=== PATIENT | male | born 1960 | race Caucasian/White ===

== ENCOUNTER 2020-03-12 11:09 | Outpatient (CLI) | payer OTHER, SELFPAY ==
[2020-03-12 11:50] LABS: Basophils Absolute Auto 0.1 K/mm3 (0.0-0.1); Basophils Percent Auto 1.1 % (0.2-1.2); Eosinophils Percent Auto 0.8 % (0-4.4); Hematocrit 46.2 % (42.0-52.0); Hemoglobin 15.8 g/dL (14.0-18.0); Immature Granulocyte Absolute 0.01 K/mm3 (0.00-0.031); Immature Granulocyte Percent A 0.2 % (0-0.5); Lymphocytes Percent Auto 34.5 % (18.3-44.2); Mean Corpuscular HGB Conc 34.2 g/dl (32-36); Mean Corpuscular Hemoglobin 31.8 pg (26-34); Monocytes Absolute Auto 0.5 K/mm3 (0.1-0.6); Monocytes Percent Auto 8.8 % (2.6-8.5); Neutrophils Absolute Auto 2.9 K/mm3 (1.3-6.7); Neutrophils Percent Auto 54.6 % (45.5-73.1); Platelet Count Result 213 k/mm3 (150-375); Prothrombin Time 12.6 Seconds (11.1-14.7); Red Blood Count 4.97 M/mm3 (4.6-6.20); Red Cell Distribution Width 12.3 % (11.5-14.5); White Blood Count 5.2 K/mm3 (4.5-10.0)
[2020-03-12 11:57] LABS: Alanine Aminotransferase 23 U/L (4-50); Albumin Level 4.4 g/dL (3.5-5.1); Alkaline Phosphatase 63 U/L (38-126); Aspartate Amino Transferase 27 U/L (17-59); Blood Urea Nitrogen 11 mg/dL (9-20); Carbon Dioxide 25 mmol/L (22-30); Chloride 106 mmol/L (98-107); Estimated Glomerular Filt Rate > 60; Glucose 96 mg/dL (75-110); Potassium 4.3 mmol/L (3.4-5.0); Sodium 139 mmol/L (137-145)
== END 2020-03-12 11:10 | disposition home or self-care (01) ==
PROVIDERS: PCP Family Medicine; Visit Provider Internal Medicine Cardiovascular Disease
DX: Z01.818 Encounter for other preprocedural examination (principal)
CPT/HCPCS: 36415; 80053; 85025; 85610

== ENCOUNTER 2021-01-22 15:46 | Outpatient (CLI) | payer OTHER, SELFPAY ==
[2021-01-22 17:01] LABS: Alanine Aminotransferase 39 U/L (4-50); Albumin Level 4.6 g/dL (3.5-5.1); Alkaline Phosphatase 73 U/L (38-126); Anion Gap 5 mmol/L (8-16); Aspartate Amino Transferase 37 U/L (17-59); Bilirubin,Total 1.7 mg/dL (0.2-1.3); Blood Urea Nitrogen 17 mg/dL (9-20); Calcium 9.8 mg/dL (8.4-10.2); Carbon Dioxide 30 mmol/L (22-30); Chloride 102 mmol/L (98-107); Estimated Glomerular Filt Rate 51; Glucose 92 mg/dL (75-110); Potassium 4.8 mmol/L (3.4-5.0); Sodium 137 mmol/L (137-145)
== END 2021-01-22 15:47 | disposition home or self-care (01) ==
LOC: ANHLAB 15:50
PROVIDERS: PCP Family Medicine; Visit Provider Internal Medicine Cardiovascular Disease
DX: I25.118 Atherosclerotic heart disease of native coronary artery with other forms of angina pectoris (principal)
CPT/HCPCS: 36415; 80053

== ENCOUNTER 2021-05-23 14:03 | Outpatient (CLI) | payer OTHER, SELFPAY ==
[2021-05-23 14:37] LABS: Alanine Aminotransferase 44 U/L (4-50); Albumin Level 4.3 g/dL (3.5-5.1); Alkaline Phosphatase 72 U/L (38-126); Anion Gap 5 mmol/L (8-16); Aspartate Amino Transferase 38 U/L (17-59); Blood Urea Nitrogen 18 mg/dL (9-20); Calcium 9.3 mg/dL (8.4-10.2); Carbon Dioxide 27 mmol/L (22-30); Chloride 108 mmol/L (98-107); Estimated Glomerular Filt Rate 56; Glucose 99 mg/dL (65-110); Potassium 5.1 mmol/L (3.4-5.0); Sodium 140 mmol/L (137-145)
== END 2021-05-23 14:04 | disposition home or self-care (01) ==
PROVIDERS: PCP Family Medicine; Visit Provider Internal Medicine Cardiovascular Disease
DX: I25.118 Atherosclerotic heart disease of native coronary artery with other forms of angina pectoris (principal)
CPT/HCPCS: 36415; 80053; 84443

== ENCOUNTER 2021-10-31 00:25 | Day surgery (SDC) | payer OTHER, SELFPAY ==
[2021-10-16 13:53] VITALS: BMI 28.4
--- NOTE | 2021-10-30 11:39 | PM.HPGS ---
History of Present Illness History of Present Illness Consent: Risks, benefits, and alternatives have been discussed and questions answered. Patient agrees to proceed with procedure. Chief complaint: hx of colon polyps Narrative: Erick Jaquez is a 61 year old male Referred for colon cancer screening. He had a polyp removed about 6 years ago Review of Systems Review of Systems: All systems reviewed & are unremarkable except as noted in HPI and below PMFSH Past Medical History Medical History Arthritis CAD (coronary artery disease) Hyperlipidemia Family History Family History Other Diabetes mellitus Family history of cardiovascular disease Social History Social History Years smoked: 10 Smoking status: Former smoker Tobacco type: cigarettes Smoking end date: 09/13/84 Alcohol intake: never Substance use: never Substance use type: does not use Living arrangements: with family Spiritual care concerns: No Meds Home Medications and Allergies Home Medications Medication Instructions Recorded Confirmed Type aspirin 81 mg PO DAILY 10/16/21 10/16/21 History atorvastatin 80 mg PO DAILY 10/16/21 10/16/21 History ranolazine 500 mg PO DAILY 10/16/21 10/16/21 History spironolactone 25 mg PO DAILY 10/16/21 10/16/21 History Allergies Allergy/AdvReac Type Severity Reaction Status Date / Time No Known Allergies Allergy Verified 10/31/21 07:19 Exam Const: General: alert Orientation/consciousness: patient oriented x3 Resp: Auscultation: clear to auscultation bilaterally Cardio: Rhythm: regular rhythm GI: GI Palp: Yes Soft to palpation and No Tenderness to palpation present (GI) Neuro: General: patient oriented x3 Assessment and Plan Assessment and plan (1) Colon cancer screening: Code(s): Z12.11 - Encounter for screening for malignant neoplasm of colon Status: Acute Assessment and Plan: Colonoscopy with possible biopsy or polypectomy or cautery or injection of substances.
[2021-10-31 07:10] VITALS: BP 108/62; PULSE 86; RESP 18; TEMP 36.1; O2SAT 96; BMI 28.2
[2021-10-31] MEDS: LACTATED RINGERS 1,000 ML 150 ML IV CONT (07:32)
--- NOTE | 2021-10-31 07:35 | WPDANESEPPF ---
Anes - Initial Pre Proc Eval Procedure: Operation Date: 10/31/21 08:30 Proposed Procedures p Screening Colonoscopy - Leonardo Barry MD Date/Time: 10/31/21 07:35 Surgeon: Leonardo Barry MD Pre Op Diagnosis: hx of colon polyps Patient Data Age: 61 Gender: M Height: 1.78 m Weight: 89.3 kg Last Vital Signs Temp 36.1 C L 10/31/21 07:10 Pulse 86 10/31/21 07:10 Resp 18 10/31/21 07:10 BP 108/62 10/31/21 07:10 Pulse Ox 96 10/31/21 07:10 Allergies Allergy/AdvReac Type Severity Reaction Status Date / Time No Known Allergies Allergy Verified 10/31/21 07:19 Home Medications Medication Instructions Recorded Confirmed Type aspirin 81 mg PO DAILY 10/16/21 10/16/21 History atorvastatin 80 mg PO DAILY 10/16/21 10/16/21 History ranolazine 500 mg PO DAILY 10/16/21 10/16/21 History spironolactone 25 mg PO DAILY 10/16/21 10/16/21 History Patient hx anesthesia problems: none Family hx anesthesia problems: none Results Review: All pre-operative results and documents have been reviewed as part of the pre-operative evaluation. [facility] Past Medical History Medical History Arthritis CAD (coronary artery disease) Hyperlipidemia Family History Family History Other Diabetes mellitus Family history of cardiovascular disease Social History Social History Years smoked: 10 Smoking status: Former smoker Tobacco type: cigarettes Smoking end date: 09/13/84 Alcohol intake: never Substance use: never Substance use type: does not use Living arrangements: with family Spiritual care concerns: No Anes - Eval Final PreProcedure Day of Procedure 10/31/21 07:35 Patient weight: overweight Heart: regular rate and rhythm Lungs: clear to auscultation Airway: Mallampati scale class II Neurological: alert and oriented Last oral intake: >/= 8 hours ASA classification: III Emergent: no Anesthetic plan: proceed Anesthesia type and monitoring: general GIVS and standard monitoring Results Review: All pre-operative results and documents have been reviewed as part of the pre-operative evaluation. Informed Consent: The patient's anesthetic plan and its attendant risks and benefits were discussed with the patient/family/POA. Questions were solicited and answers provided to the satisfaction of the patient/family/POA.
[2021-10-31 08:29] VITALS: BP 100/59; PULSE 81; RESP 24; O2SAT 92
[2021-10-31 08:39] VITALS: BP 107/72; PULSE 66; RESP 28; O2SAT 100
[2021-10-31 08:49] VITALS: BP 116/77; PULSE 56; RESP 20; O2SAT 99
== END 2021-10-31 08:56 | disposition home or self-care (01) ==
PROVIDERS: PCP Family Medicine; Visit Provider Internal Medicine Gastroenterology
PROC: 0DJD8ZZ Inspection of Lower Intestinal Tract, Via Natural or Artificial Opening Endoscopic (ICD-10-PCS; CPT 45378; principal; 2021-10-31 08:30)
DX: Z12.11 Encounter for screening for malignant neoplasm of colon (principal); K63.5 Polyp of colon; Z79.82 Long term (current) use of aspirin; M19.90 Unspecified osteoarthritis, unspecified site; I25.10 Atherosclerotic heart disease of native coronary artery without angina pectoris; E78.5 Hyperlipidemia, unspecified; Z87.891 Personal history of nicotine dependence
CPT/HCPCS: 45380; 88305; J2704; J7120

== ENCOUNTER 2025-05-09 06:52 | Outpatient (CLI) | payer MEDICARE, OTHER, SELFPAY ==
--- NOTE | ~2025-05-09 | MR_ITS ---
EXAMINATION: MR knee RT wo con DATE: 05/09/2025 07:22 INDICATION: Right knee pain TECHNIQUE: Magnetic resonance imaging (MRI) of the right knee was performed without intravenous contrast. Sequences included coronal PD-weighted FSE, coronal PD-weighted FS FSE, sagittal T2-weighted FSE, sagittal PD-weighted FS FSE and axial PD weighted fat saturated FSE. COMPARISON: None. FINDINGS: Medial compartment: Complex tear of the posterior body and posterior horn of the medial meniscus with a couple longitudinal tear planes extending to both the superior articular surface as well as to the inferior articular surface near the free edge at the posterior horn. There is medial extrusion of the medial meniscal body with suggestion of cephalad subluxation of a small portion of the superior peripheral margin of the meniscus along the medial rim of the weightbearing medial femoral condyle. There is deep chondral ulceration with small central subchondral osteophytes along the anterior to central weightbearing medial femoral condyle. Additional chondral ulceration involving greater than 50% of the cartilage thickness with small focus of subarticular edema-like signal change at the central to medial aspect of the medial tibial plateau. Lateral compartment: Lateral meniscus is normal. Small partial-thickness chondral fissure involving greater than 50% the cartilage thickness but without degenerative subchondral changes along the posterior aspect of the lateral tibial plateau. Remaining articular cartilage is normal. Patellofemoral compartment: Partial-thickness chondral ulceration and deep fissuring at the central aspect of the patellar apical ridge and adjacent aspect of the medial patellar facet. Less severe partial thickness chondral fissuring at the lateral side of the lateral patellar facet. Partial-thickness chondral ulceration with deeper fissuring and underlying central subchondral osteophytes at the trochlear groove and small foci of subarticular edema-like signal change at the medial trochlea. Lateral trochlear cartilage is relatively preserved. Ligaments and tendons: Anterior and posterior cruciate ligaments are normal. The medial collateral ligament and fibular collateral ligament complex are normal. The extensor mechanism is normal. The visualized medial and lateral hamstring tendons as well as the iliotibial band are normal. Fluid: Physiologic amount of fluid in the joint space. No loose osteochondral bodies identified. Osseous/other: 8 x 7 x 7 mm T2 hyperintense lesion with cluster of grape like appearance at the posterior aspect medial tibial plateau which could represent either an enchondroma or more likely a small intraosseous ganglion cyst. No fracture or pathologic marrow replacing process. IMPRESSION: 1. Complex medial meniscal tear with moderate osteoarthritis with high-grade chondral malacia in the medial compartment. 2. Additional mild osteoarthritis with high-grade chondromalacia at the patellofemoral compartment and minimal osteoarthritis with small region of moderate grade chondral malacia the lateral compartment. Reviewed, dictated and finalized at location A. IMPRESSION: 1. Complex medial meniscal tear with moderate osteoarthritis with high-grade ch ondral malacia in the medial compartment. 2. Additional mild osteoarthritis with high-grade chondromalacia at the patello femoral compartment and minimal osteoarthritis with small region of moderate gr mathew chondral malacia the lateral compartment.
== END 2025-05-09 06:53 | disposition home or self-care (01) ==
DX: M25.561 Pain in right knee (principal)
CPT/HCPCS: 73721

== ENCOUNTER 2025-05-22 07:19 | Outpatient (CLI) | payer MEDICARE, OTHER, SELFPAY ==
--- NOTE | ~2025-05-22 | US_ITS ---
EXAMINATION: US aorta [facility] DATE: 05/22/2025 08:23 INDICATION: Abdominal aortic aneurysm screening. TECHNIQUE: Grayscale, color Doppler, and pulsed Doppler images of the aorta and common iliac arteries were obtained. COMPARISON: None. FINDINGS: The aorta is normal in caliber. The right common iliac artery is normal in caliber. The left common iliac artery is normal in caliber. IMPRESSION: 1. No abdominal aortic aneurysm. Reviewed, dictated and finalized at location E.
== END 2025-05-22 07:20 | disposition home or self-care (01) ==
PROVIDERS: PCP Internal Medicine; Visit Provider Internal Medicine
DX: Z13.6 Encounter for screening for cardiovascular disorders (principal)
CPT/HCPCS: 76706

== ENCOUNTER 2025-07-11 14:17 | Outpatient (CLI) | payer MEDICARE, OTHER, SELFPAY ==
--- NOTE | 2025-07-11 | ECG_ITS ---
Test Date: 2025-07-11 14:40:17 Measurements Intervals [place] Rate: 54 P: 30 AK: 134 QRS: 37 QRSD: 102 T: 50 QT: 438 QTc: 417 Interpretive Statements SINUS BRADYCARDIA NONSPECIFIC ST-T WAVE ABNORMALITY- INF/LAT LEADS BORDERLINE ECG No previous ECG available for comparison Electronically Signed On 07-11-2025 14:56:46 CDT by Stas Andrew D.O.
--- OUTSIDE RECORDS SUMMARY | 2025-07-11 16:18 | XMS_ITS | Clinical Summary ---
Author Organization [facility] [place] [address] Address [address] [place] [address] Care Team Providers Care Commissions Analyst Name Role Phone Yunier Michel MD Primary Care Provide r Allergies No known active allergies Medications albuterol HFA (PROVENTIL HFA,VENTOLIN HFA,PROAIR HFA) 90 mcg/actuation inhaler Inhale 2 puffs every 6 (six) hours as needed for wheezing Active fluticasone propionate (FLONASE) 50 mcg/actuation nasal spray Administer 1 spray into each nostril daily Active multivitamin capsule Take 1 capsule by mouth daily Active aspirin 81 mg enteric coated tablet Take 1 tablet (81 mg total) by mouth daily 30 tablet 11 0 Active Jardiance 10 mg tablet TAKE 1 TABLET DAILY 90 tablet 3 5 Active spironolactone (ALDACTONE) 25 mg tablet Take 1 tablet (25 mg total) by mouth daily 90 tablet 1 5 Active ranolazine ER (RANEXA) 500 mg 12 hr tablet Take 1 tablet (500 mg total) by mouth 2 (two) times a day 180 tablet 1 5 Active ezetimibe (ZETIA) 10 mg tablet Take 1 tablet (10 mg total) by mouth daily 90 tablet 1 5 Active atorvastatin (LIPITOR) 80 mg tablet Take 1 tablet (80 mg total) by mouth daily 90 tablet 1 5 Active Active Problems Problem Noted Date Diagnosed Date Chest tightness 03/06/2020 Overview (03/06/2020): Added automatically from request for surgery [id number] Abnormal stress test 03/06/2020 Overview (03/06/2020): Added automatically from request for surgery [id number] Encounters Date Type Department Care Team Description 07/11/2025 Telephone [facility] Card[facility] [address] [place] [address] Venu Diaz MD from Last 3 Months Surgical History Surgery Date Site/Laterality Comments KNEE SURGERY Right WRIST SURGERY Left BACK SURGERY lumbar Medical History Medical History Date Comments Hyperlipidemia Heart murmur Pneumonia Chest tightness Chronic bronchitis (HCC) Asthma GERD (gastroesophageal reflux disease) Migraine Arthritis Brain concussion Apr 1977, , 1981, 1983 Peptic ulceration 1998 Family History Medical History Relation Name Comments Diabetes Brother 1 Anthony Leonid Heart disease Brother 1 Anthony Leonid Hypertension Brother 1 Anthony Leonid Alcohol abuse Brother 2 Anthony Arthritis Brother 2 Anthony COPD Brother 2 Anthony Diabetes Brother 2 Anthony Heart attack Brother 2 Anthony Heart disease Brother 2 Anthony Hypertension Brother 2 Anthony Diabetes Father Hartman Heart attack Father Hartman Heart disease Father Hartman Hyperlipidemia Father Hartman Memory loss Father Hartman Cancer Maternal Grandmother Kathleen Arthritis Mother Krista Cancer Mother Krista Leukemia Mother Krista Cancer Paternal Grandmother Maryanne Relation Name Status Comments Brother 1 Anthony Leonid Alive Brother 2 Anthony Father Hartman (Age 81) Maternal Grandmother Kathleen Mother Krista (Age 80) Paternal Grandmother Maryanne Social History Tobacco Use Types Packs/Day Years Used Date Smoking Tobacco: Former Cigarettes 0.8 8 0 09/13/1976 - 09/13/1984 Cigars Smokeless Tobacco: Never Tobacco Cessation:Counseling Given: Not Answered Alcohol Use Standard Drinks/Week Comments Yes 0 (1 standard drink = 0.6 oz pur e alcohol) rarely Sex and Gender Information Value Date Recorded Sex Assigned at Not on file 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 Gender Identity Male 01/13/2021 5:16 PM CDT Sexual Orientation Not on file Obstetrics History Last Filed Vital Signs Vital Sign Reading Time Taken Comments Blood Pressure 116/74 08/16/2024 12:47 PM CARBON CLEANER Pulse 63 07/19/2024 10:38 AM CARBON CLEANER Temperature 36.9 C (98.4 F) 03/14/2020 8:15 AM CDT Respiratory Rate 16 03/14/2020 8:15 AM CDT Oxygen Saturation 97% 07/19/2024 10: 38 AM CARBON CLEANER Inhaled Oxygen Concentration - - Weight 92.5 kg (203 lb 14.4 oz) 024 10:38 AM CARBON CLEANER Height 177.8 cm (5' 10) 07/19/2024 10: 38 AM CARBON CLEANER Body Mass Index 29.26 07/19/2024 10:38 AM CARBON CLEANER Plan of Treatment Health Maintenance Due Date Last Done Comments Colon Cancer Screening-Colonoscopy 1958 Depression Screening 1958 Fall Risk Assessment 1958 Hepatitis C Screening 1958 Prostate Cancer Screening-PSA 1958 DTaP/Tdap/Td Vaccine (1 - Tdap) 1969 Hepatitis B Screening 1976 Zoster Vaccine (1 of 2) 2008 Pneumococcal vaccine 65+ (2 of 2 - PPSV23, PCV20, or PCV21) 11/20/2020 09/25/2020 Abdominal Aortic Aneurysm (AAA) Screen 2023 Well Visit 65+ 2023 Influenza Vaccine (#1) 2025 Medical Devices Implanted Type Area Manager Cardiac Device Identifier Shelf Expiration Date Model / Serial / Lot Daig Sushma [id number] Device Closure Angio-Seal Vip Bondek-Plus Polyglyd L70 Cm Od6 Fr [id number] In Vascular - [id number] Implanted:Qty : 1 on 03/14/2020 by Venu Diaz MD at [facility] Right: Femoral Daig Sushma/[employer] [id number] / / Insurance MEDICARE FOR LIFE Care Teams Commissions Analyst Relationship Specialty Start Date End Date Yunier Michel MD [address] [address] PCP - General Internal Medicine 03/08/25
--- OUTSIDE RECORDS SUMMARY | 2025-07-11 16:18 | XMS_ITS | Encounter Summary ---
Author Organization [facility] Address [address] [place] [id number] Care Team Providers Care Forest Aide Name Role Phone Yunier Michel MD Primary Care Provide r Encounter Details Date Type Department Care Team (Late st Contact Info) Description 07/11/2025 Telephone [facility] Cardiology [address] [place] [address] Venu Diaz MD [address] [place] [address] [facility], [place] [address] [place] [address] Social History Tobacco Use Types Packs/Day Years Used Date Smoking Tobacco: Former Cigarettes 0.8 8 0 09/13/1976 - 09/13/1984 Cigars Smokeless Tobacco: Never Alcohol Use Standard Drinks/Week Comments Yes 0 (1 standard drink = 0.6 oz pur e alcohol) rarely Sex and Gender Information Value Date Recorded Sex Assigned at Not on file 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 The office does have the cardiac clearance form, but Dr Michel is requesting a letter from Dr. Diaz. The form does not suffice. Please advise. Thank you. Contact : [phone] documented in this encounter Plan of Treatment Not on file documented as of this encounter Visit Diagnoses Not on filedocumented in this encounter Care Teams Forest Aide Relationship Specialty Start Date End Date Yunier Michel MD [address] [place] [address] PCP - General Internal Medicine 03/08/25 documented as of this encounter
== END 2025-07-11 14:18 | disposition home or self-care (01) ==
LOC: ANHLAB 14:24
PROVIDERS: PCP Internal Medicine; Visit Provider Nurse Anesthetist, Certified Registered
DX: Z01.818 Encounter for other preprocedural examination (principal); Z86.79 Personal history of other diseases of the circulatory system; R94.31 Abnormal electrocardiogram [ECG] [EKG]
CPT/HCPCS: 93005

== ENCOUNTER 2025-07-25 08:50 | Outpatient (CLI) | payer MEDICARE, OTHER, SELFPAY ==
--- NOTE | ~2025-07-25 | US_ITS ---
EXAMINATION: US thyroid DATE: 07/25/2025 09:13 INDICATION: Hypothyroidism TECHNIQUE: Multiple ultrasound images of the thyroid were obtained. COMPARISON: None. FINDINGS: The right thyroid lobe measures 4.2 x 2.6 x 1.2 cm. The left thyroid lobe measures 3.9 x 1.9 x 1.3 cm. 1.3 cm solid hyperechoic taller than wide nodule with smooth to ill-defined margins in the right thyroid lobe (TI-RADS 4, moderately suspicious , FNA if >=1.5 cm, annual followup is >=1 cm). There is a second 1.0 cm Solid hypoechoic also TI RADS 4 nodule which is wider than tall with ill-defined margins and without echogenic foci in the right thyroid lobe. IMPRESSION: 1. A couple TI RADS 4 nodules in the right thyroid lobe for which annual ultrasound follow-up would be recommended. Reviewed, dictated and finalized at location A. BASTING ARMHOLE BASTER IMPRESSION: 1. A couple TI RADS 4 nodules in the right thyroid lobe for which annual ultras ound follow-up would be recommended.
== END 2025-07-25 08:51 | disposition home or self-care (01) ==
LOC: MICIMG 08:51
PROVIDERS: PCP Internal Medicine; Visit Provider Internal Medicine
DX: E04.2 Nontoxic multinodular goiter (principal)
CPT/HCPCS: 76536